=== PATIENT | male | born 1990 | race Caucasian/White ===

== ENCOUNTER → 2022-03-25 | Outpatient (CLI) | payer OTHER ==
--- NOTE | 2022-03-25 15:01 | XR ---
EXAMINATION TYPE: XR chest 2V DATE OF EXAM: 03/25/2022 2:55 PM COMPARISON: None TECHNIQUE: XR chest 2V Frontal and lateral views of the chest. CLINICAL INDICATION:Male, 31 years old with history of S20.20XA, S20.221A; FINDINGS: Lungs/Pleura: There is no evidence of pleural effusion, focal consolidation, or pneumothorax. Pulmonary vascularity: Unremarkable. Heart/mediastinum: Cardiomediastinal silhouette is unremarkable. Musculoskeletal: No acute osseous pathology. IMPRESSION: No acute cardiopulmonary disease/process.
--- NOTE | 2022-03-25 15:04 | XR ---
EXAMINATION TYPE: XR thoracic spine complete DATE OF EXAM: 03/25/2022 CLINICAL HISTORY: Injury with mid back pain. TECHNIQUE: Frontal, lateral, and swimmer's view of thoracic spine are obtained. COMPARISON: None. FINDINGS: Thoracic spine show satisfactory alignment without evidence of acute fracture or dislocatio n. Vertebral body heights and disc space heights are preserved. Visualized ribs are intact bilateral ly. IMPRESSION: No acute fracture or dislocation is seen in the thoracic spine.
--- NOTE | 2022-03-25 15:05 | XR ---
EXAMINATION TYPE: XR scapula RT DATE OF EXAM: 03/25/2022 COMPARISON: NONE HISTORY: pain TECHNIQUE: two views submitted FINDINGS: Joint spaces are preserved. Ribs are intact. There is a lucency through the glenoid on one view only which is likely is artifactual. IMPRESSION: 1. Lucency through the glenoid most likely is artifactual. The patient experienced point tenderness r egarding the glenoid then recommend CT scan.
== END | disposition home or self-care (01) ==
LOC: RADXRMAIN 14:16
PROVIDERS: ATTEND Emergency Medicine
DX: S20.221A Contusion of right back wall of thorax, initial encounter (principal); M54.6 Pain in thoracic spine
CPT/HCPCS: 71046; 72072

== ENCOUNTER → 2022-03-25 | Outpatient (CLI) | payer OTHER ==
--- NOTE | 2022-03-25 17:46 | CT ---
EXAMINATION TYPE: CT scapula RT wo con CT DLP: 328.5 mGycm, Automated exposure control for dose reduction was used. DATE OF EXAM: 03/25/2022 5:33 PM COMPARISON: None CLINICAL INDICATION:Male, 31 years old with history of S20.221A; , Rt scapula injury at work TECHNIQUE: Axial images were obtained of the right scapula . Additional coronal and sagittal reforma tted images and soft tissue and bone window were obtained for review. 3-D reconstruction was created on a separate workstation. Contrast used: None Oral contrast used: None FINDINGS: There is no evidence of fracture, subluxation, or dislocation. Scapula is intact without e vidence for fracture. The glenoid appears within normal limits. No significant soft tissue swelling o r joint effusion is identified. No focal muscular atrophy or edema is identified. No radiopaque forei gn body identified. Visualized portions of the chest are unremarkable. IMPRESSION: No evidence for acute fracture or dislocation. The glenoid appears intact within the limitations of C T, Consider MRI evaluation for better characterization for bony edema.
== END | disposition home or self-care (01) ==
LOC: RADCTMAIN 17:09
PROVIDERS: ATTEND Emergency Medicine
DX: S20.221A Contusion of right back wall of thorax, initial encounter (principal)

== ENCOUNTER → 2022-03-26 | Outpatient (CLI) | payer OTHER ==
--- NOTE | 2022-03-26 10:20 | XR ---
EXAMINATION TYPE: XR cervical spine comp DATE OF EXAM: 03/26/2022 TECHNIQUE: Frontal, lateral, oblique, swimmers, and open mouth view of the cervical spine are obtaine d. HISTORY: [id number] COMPARISON: None FINDINGS: The cervical spine is visualized in its entirety from C1 thru the top of T1 level, there i s grade 1 retrolisthesis C2 on C3 without evidence of acute fracture or dislocation. The pre-vertebr al soft tissue appears within normal limits. The C1-C2 articulation is within normal limits on the o pen mouth view. Vertebral body heights and disc space heights are maintained The oblique images are w ithin normal limits. Overlying soft tissues are unremarkable. IMPRESSION: No acute fracture or dislocation is seen in the cervical spine.
== END | disposition home or self-care (01) ==
LOC: RADXRMAIN 09:54
PROVIDERS: ATTEND Emergency Medicine
DX: S20.221D Contusion of right back wall of thorax, subsequent encounter (principal)
CPT/HCPCS: 72050

== ENCOUNTER → 2022-08-04 | Outpatient (CLI) | payer OTHER ==
--- NOTE | 2022-08-04 23:13 | MR ---
EXAMINATION TYPE: MR lumbar spine wo con DATE OF EXAM: 08/04/2022 COMPARISON: Outside lumbar spine x-ray July 01, 2022 HISTORY: LOW BACK PAIN into bilateral buttocks and front of thighs, INJURED 03-24-2022 TECHNIQUE: Multiplanar, multisequence imaging of the lumbar spine is performed without IV contrast. FINDINGS: Sagittal images of the lumbar spine show vertebral body heights and alignment to appear sta ble and satisfactory. There is disc desiccation L1-L2 and L5-S1 levels. There is mild disc space narr owing L1-L2 level with mild anterior spurring. The conus medullaris is normal in position and signal ending mid L1 level. Heterogeneous Modic type II endplate changes involving the inferior L1 endplate. Axial images show T12-L1 level to appear within normal limits. Axial images at L1-L2 level show mild broad disc bulge minimally effacing the anterior thecal sac. Pa tent bilateral neural foramina are seen. Axial images at L2-L3 and L3-L4 levels are within normal limits. Axial images at L4-L5 level show mild facet arthropathy bilaterally. Bilateral neural foramina are pa tent. Axial images at L5-S1 level show mild facet arthropathy bilaterally. There is tiny central disc protr usion but spinal canal is preserved as there is increased epidural fat. Bilateral neural foramina are noted patent. Paraspinal muscle bulk is maintained. IMPRESSION: Mild multilevel degenerative changes in the lumbar spine as detailed above.
== END | disposition home or self-care (01) ==
LOC: RADMRIMAIN 19:19
PROVIDERS: ATTEND Nurse Practitioner Family
DX: M47.816 Spondylosis without myelopathy or radiculopathy, lumbar region (principal)
CPT/HCPCS: 72148

== ENCOUNTER → 2022-08-06 | Outpatient (CLI) | payer OTHER ==
[2022-08-06 12:09] VITALS: BP 143/92; PULSE 94; RESP 18; TEMP 97.9
--- NOTE | 2022-08-06 14:14 | P.PAINPG ---
PQRS Measure Charge Sheet Comment: HISTORY OF PRESENT ILLNESS: 31 yr old male w at side as a referral from [facility] presents today w severe and chronic thoracic secondary to disc bulges, DDD, spondylosis and facet arthropathy without myelopathy for evaluation. Pt states pain level is at 9 /10 in intensity, constant, localized throughout the mid thoracic spine, sharp in character w shooting pain towards the flanks. Pain is provoked by bending, standing, twisting. Pain is alleviated by medications (Flexeril, Naproxen), THC edibles, Lidoderm patches, steroid IM x1, PT x 6 wks which ended in Jul 2022, use of a hot/ cold compression device, TENS unit use at home, use of a cane for ambulatory assistance, repositioning and rest. PMH: OA PSH: Denies SH: Never smoker, No ETOH abuse, +Cannabis use. Works at a factory. FH: Non contributory All: NKDA Meds: See list REVIEW OF ORGAN SYSTEMS: CONSTITUTIONAL: No fevers or chills. No recent weight loss. NEUROLOGICAL: + numbness and tingling along the distal extremities. No seizure disorders or headaches. MUSCULOSKELETAL: + pain PSYCHIATRIC: Denies current depression or suicidal thoughts. Physical Examinations : Constitutional : Cooperative , not in acute distress . Neurologic : Cranial nerve II to XII intact. No focal neurological deficits. Psychiatric : alert & oriented x 3. Matching mood & appropriate affect. Judgment & insight intact. Musculoskeletal : Cervical Spine Motor strength in the deltoid and biceps: Normal right side. Normal Left side Motor strength biceps and the wrist extensors: Normal right side . Normal left side Motor strength in the triceps muscle: Normal right side. Normal left side Deep tendon reflexes: Normal at the biceps. Normal at Brachioradialis. Normal at triceps Vertebral body tenderness to deep palpation over Cervical facet loading test: positive bilaterally Spurling test: positive bilaterally Neck distraction test: positive bilaterally Yajaira sign: positive bilaterally Thoracic spine Vertebral body tenderness to palpation over T7 Lumbar spine Motor strength lower extremities ,thigh and legs 5/5 Right side , 5/5 Left side Deep tendon reflexes : Normal Knee Jerk. Normal Ankle Jerk Vertebral body tenderness over Lumbar facet Loading Test: positive Right / positive Left Range of motion of the lumbar spine Flexion 30 degrees, extension 10 degrees Straight Leg Raise test: Left/ Right positive at degree Maty test: positive right / positive left. Severe tenderness over the Sacroiliac joint on the Right / Left sides Gaenslen test: positive bilaterally Seated flexion test: positive bilaterally. Sacral spine : Severe tenderness over the Sacroiliac joint: right side / left side Range of motion: Flexion of the lumbar spine <60 degrees Range of motion: Extension of the lumbar spine <20 degrees Gaenslen's Test positive Farhat's Test positive Maty test: positive right side / left side Thigh Thrust Test Sacral Thrust Test Imaging: MRI without contrast of the thoracic spine from 07/15/22 reviewed Assessment/ Plan : Lumbar disc bulges, Lumbar DDD Recommendation of SONAM T6- T7 #1. May need a series of injections for optimal pain relief. Risks, benefits of procedure discussed and patient verbalized understanding. Admits to aspirin or anti- coagulant use or medical history of diabetes. Protocol for discontinuation/ continuation of medications jaylon procedure discussed. All questions answered. I have spent greater than 30 minutes on patient care today. Dr Fierro was available by phone for the evaluation of this patient. The time was used to review the medical records including relevant urine studies and Prescription history (MAPs), review of the available imaging, evaluation and examination of the patient, coordination of care with the medical staff and if applicable referring physicians, as well as creation of the medical record Controlled Substance Measures - Controlled Substance Measures Is patient prescribed a controlled substance at discharge?: No
== END ==
LOC: PNWHC3 09:17
PROVIDERS: ATTEND Specialist
DX: M51.24 Other intervertebral disc displacement, thoracic region (principal); M51.36 Other intervertebral disc degeneration, lumbar region
CPT/HCPCS: 99211

== ENCOUNTER 2022-08-28 11:31 | Day surgery (SDC) | payer OTHER ==
[2022-08-25 14:32] VITALS: BMI 27.3
[2022-08-28 12:09] VITALS: TEMP 98.1
[2022-08-28] MEDS ORDERED: LACTATED RINGERS 1,000 ML IV SCH (12:09)
[2022-08-28] MEDS ORDERED: LIDOCAINE 1% (10MG/ML) FOR IV START INTRADERMA PRN (12:09)
[2022-08-28] MEDS ORDERED: IOPAMIDOL M200 10 ML VIAL ONE (12:31)
[2022-08-28] MEDS ORDERED: methylPREDNISolone ACETATE 80 MG/ML 1 ML VIAL ONE (12:31)
--- NOTE | 2022-08-28 12:47 | P.PCN ---
Date of Procedure: 08/28/22 Procedure(s) Performed: PREOPERATIVE DIAGNOSIS: 1- Thoracic and Lumbar Degenerative Disc Diseases 2-Lumbar spondylosis with Facet arthropathy without myelopathy. POSTOPERATIVE DIAGNOSIS: 1- thoracic and lumbar degenerative disc disease. 2-lumbar spondylosis with facet arthropathy without myelopathy. PROCEDURE 1. Thoracic epidural steroid injection under fluoroscopic guidance at the T6-7 level. (Fluoroscopy imaging was available in radiology department) 2. thoracic epidurogram. ANESTHESIA: Local anesthesia with lidocaine 1% 3 mL only EBL: Minimal PROCEDURE INDICATION: The patient withupper ,mid and low back pain and radiculitis symptoms unresponsive to conservative treatment. Fluoroscopy was used to optimize visualization of the needle placement and to maximize safety. PROCEDURE DESCRIPTION / TECHNIQUE: The patient was seen and identified in the preoperative area. Risks, benefits, complications including but not limited to infections ,bleeding ,allergic reaction to the medications ,nerve damage and not complete pain releife , and alternatives were discussed with the patient. The patient agreed to proceed with the procedure and signed the consent. IV was started, and vital signs were stable. Patient was taken to the OR and time out was completed. The patient was placed in the prone position on procedure table and a pillow was placed under the abdomen to reduce lumbar lordosis. The lumbosacral area was prepped and draped in the usual sterile fashion.ere closely monitored during the procedure. Conscious sedation was used during the procedure to decrease patients anxiety. Vital signs was monitered during the entire procedure. Using anterior-posterior fluoroscopy, the T6-7 interlaminar space was identified and the skin over this site was marked and then infiltrated with 1% lidocaine subcutaneously. Subsequently, a 20-gauge Tuohy epidural needle was inserted and advanced toward the epidural space using the ``Loss of resistance technique and guided by AP and lateral fluoroscopy. The correct needle position in the epidural space was verified with the injection of 2 mL of the water soluble contrast dye Isovue 200 contrast and observing an excellent epidurogram with the epidural spread of the dye, after negative aspiration for blood and CSF and in the absence of paresthesias. Again after negative aspiration, a 6 ml mixture containing 80 mg of Depo-medrol ( Preservetive Free ), and 2 ml of preservative free Normal Saline, and 2 ml of preservative free lidocaine 1% solution was injected and a washout of epidurogram was seen. Needle was withdrawn intact, skin was cleansed, and bandages were applied. COMPLICATIONS: None DISPOSITION / PLANS: The patient was placed in a supine position and transferred to the recovery area in a stable condition for observation. There was no evidence of lower extremity motor or sensory deficit after the procedure. Patient was discharged from the recovery room after meeting discharge criteria. Home discharge instructions were given to the patient by the staff. The patient was reexamined prior to discharge. The patient will schedule a follow up in the clinic in 2-4 weeks.
[2022-08-28 12:51] VITALS: RESP 16
--- NOTE | 2022-08-28 12:57 | FL ---
Intraoperative/procedural fluoroscopic services were provided for thoracic epidural steroid injection . Total fluoroscopy time is 2 seconds with a total of 1 submitted image to PACS. Total DAP 0.24449. P sterling see the operative note for further details.
[2022-08-28 13:11] VITALS: BP 110/72; PULSE 89
== END 2022-08-28 13:18 | disposition home or self-care (01) ==
LOC: ORPAIN 11:31
PROVIDERS: ATTEND Specialist
DX: M51.15 Intervertebral disc disorders with radiculopathy, thoracolumbar region (principal); M47.815 Spondylosis without myelopathy or radiculopathy, thoracolumbar region
CPT/HCPCS: 62321; J1040; Q9966

== ENCOUNTER → 2022-09-24 | Outpatient (CLI) | payer OTHER ==
[2022-09-24 14:22] VITALS: BP 141/93; PULSE 83; RESP 18; TEMP 98.6
--- NOTE | 2022-09-24 15:04 | P.PAINPG ---
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 Pt states he experienced 20 % pain relief x 4 wks s/p procedure. Pain level is provoked at 9 /10 in intensity, constant, localized in the lumbar spine, tender, stabbing in character w shooting towards the hips, R> L. Pain is provoked by weight bearing activity. Pain is alleviated with PT x 18 wks which he is currently in, massage therapy integrated w PT, use of a TENS unit, heat, ice, use of a cane for ambulatory assistance, medications, topical, repositioning and rest. Interventional pain procedures completed include SONAM T6-7 Patient is currently on Baclofen, Lidoderm Patient denies any side effects of the medication(s), denies excessive drowsiness or sleepiness, denies suicidal ideation and reports that the current pain medication is helping to control the pain and improve activities of daily living. Patient denies any motor or sensory deficits. Patient denies any fever or night sweats, denies any change in the bowel movements or urination. Physical Examination: -Constitutional: Cooperative. Not in acute distress . - Neurologic: Cranial nerve II to XII intact. No focal neurological deficits. - Psychatric: Alert & oriented x 3. Matching mood & appropriate affect. Judgment and insight intact. - Musculoskeletal: Cervical spine: Muscle bulk/ tone/ strength in the bilateral upper extremities normal Vertebral body tenderness to palpation over Spurling test positive Distraction test positive Facet loading test positive TTP Thoracic spine Muscle bulk / tone/ strength in the bilateral paraspinal muscles normal Vertebral body tender to palpation over Facet loading test positive TTP Lumbar spine: Motor bulk/ tone/ strength lower extremities , thigh and legs : 5/5 Deep tendon reflexes : Normal Knee Jerk. Normal Ankle Jerk . Vertebral body tenderness to palpation over L1 Babb Test positive Lumbar Facet Loading Test positive Straight Leg Raise: positive at 30 degrees right side/ left side Gaenslen's Test positive Sacral spine : Severe tenderness over the Sacroiliac joint: right side / left side Range of motion: Flexion of the lumbar spine <60 degrees Range of motion: Extension of the lumbar spine <20 degrees Gaenslen's Test positive right side / left side Maty test: positive right side / left side Thigh Thrust Test positive right side / left side Sacral Thrust Test positive right side / left side Assessment and plan: Chronic LBP secondary to lumbar DDD, spondylosis with facet arthropathy without myelopathy Recommendation of . Risks, benefits of procedure discussed and pt verbalized understanding. Admits to anticoagulant use or medical history of diabetes. Protocol for discontinuation/ continuation of medications jaylon procedure discussed. Minimal anesthesia provided, if clinically indicated, consisting of Versed and Fentanyl. Naproxen 500mg BID #60 1 RF. Use, side effects, adverse reactions and safe storage discussed patient verbalized unders tanding. All questions answered. I have spent less than 30 minutes on patient care today. Dr Fierro was available by phone for the evaluation of this patient. The time was used to review the medical records including relevant urine studies and Prescription history (MAPs), review of the available imaging, evaluation and examination of the patient, coordination of care with the medical staff and if applicable referring physicians, as well as creation of the medical record PQRS Narrative: Hx Alcohol Use (MH) No Home Medications: Ambulatory Orders Cyclobenzaprine [Flexeril] 10 mg PO BID 08/25/22 Lidocaine 5% Patch [Lidoderm] 1 patch TOPICAL DAILY 08/25/22 Naproxen [Naprosyn] 500 mg PO BID 08/25/22 Oxybutynin Chloride [Ditropan XL] 10 mg PO DAILY 08/25/22 Controlled Substance Measures - Controlled Substance Measures Is patient prescribed a controlled substance at discharge?: No
== END ==
LOC: PNWHC3 10:55
PROVIDERS: ATTEND Specialist
DX: M51.36 Other intervertebral disc degeneration, lumbar region (principal); M47.816 Spondylosis without myelopathy or radiculopathy, lumbar region; G89.29 Other chronic pain
CPT/HCPCS: 99211

== ENCOUNTER 2022-10-14 10:24 | Day surgery (SDC) | payer OTHER ==
[2022-10-14] MEDS ORDERED: LACTATED RINGERS 1,000 ML IV SCH (10:39)
[2022-10-14] MEDS ORDERED: LIDOCAINE 1% (10MG/ML) FOR IV START INTRADERMA PRN (10:39)
[2022-10-14 10:48] VITALS: TEMP 97.8
[2022-10-14] MEDS ORDERED: fentaNYL (PF) 50 MCG/ML 2 ML AMP ONE (10:59)
[2022-10-14] MEDS ORDERED: IOPAMIDOL M200 10 ML VIAL ONE (10:59)
[2022-10-14] MEDS ORDERED: methylPREDNISolone ACETATE 80 MG/ML 1 ML VIAL ONE (10:59)
[2022-10-14] MEDS ORDERED: MIDAZOLAM 2 MG/2 ML VIAL ONE (10:59)
--- NOTE | 2022-10-14 11:08 | P.PCN ---
Date of Procedure: 10/14/22 Procedure(s) Performed: PREOPERATIVE DIAGNOSIS: 1- Lumbar Degenerative Disc Diseases 2-Lumbar spondylosis with Facet arthropathy without myelopathy. POSTOPERATIVE DIAGNOSIS: 1-lumbar degenerative disc disease. 2-lumbar spondylosis with facet arthropathy without myelopathy. PROCEDURE 1. Lumbar epidural steroid injection under fluoroscopic guidance at the L1-2 level. (Fluoroscopy imaging was available in radiology department) 2. Lumbar epidurogram. ANESTHESIA: moderate sedation with intravenous Versed 2 mg ,and fentanyle 100 Mcg Sedation start time : 1059 Sedation end time : 1105 EBL: Minimal PROCEDURE INDICATION: The patient with low back pain and radiculitis symptoms unresponsive to conservative treatment. Fluoroscopy was used to optimize visualization of the needle placement and to maximize safety. PROCEDURE DESCRIPTION / TECHNIQUE: The patient was seen and identified in the preoperative area. Risks, benefits, complications including but not limited to infections ,bleeding ,allergic react ion to the medications ,nerve damage and not complete pain releife , and alternatives were discussed with the patient. The patient agreed to proceed with the procedure and signed the consent. IV was started, and vital signs were stable. Patient was taken to the OR and time out was completed. The patient was placed in the prone position on procedure table and a pillow was placed under the abdomen to reduce lumbar lordosis. The lumbosacral area was prepped and draped in the usual sterile fashion.ere closely monitored during the procedure. Conscious sedation was used during the procedure to decrease patients anxiety. Vital signs was monitered during the entire procedure. Using anterior-posterior fluoroscopy, the L1-2 interlaminar space was identified and the skin over this site was marked and then infiltrated with 1% lidocaine subcutaneously. Subsequently, a 20-gauge Tuohy epidural needle was inserted and advanced toward the epidural space using the ``Loss of resistance technique and guided by AP and lateral fluoroscopy. The correct needle position in the epidural space was verified with the injection of 2 mL of the water soluble contrast dye Isovue 200 contrast and observing an excellent epidurogram with the epidural spread of the dye, after negative aspiration for blood and CSF and in the absence of paresthesias. Again after negative aspiration, a 6 ml mixture containing 80 mg of Depo-medrol ( Preservetive Free ), and 2 ml of preservative free Normal Saline, and 2 ml of preservative free lidocaine 1% solution was injected and a washout of epidurogram was seen. Needle was withdrawn intact, skin was cleansed, and bandages were applied. COMPLICATIONS: None DISPOSITION / PLANS: The patient was placed in a supine position and transferred to the recovery area in a stable condition for observation. There was no evidence of lower extremity motor or sensory deficit after the procedure. Patient was discharged from the recovery room after meeting discharge criteria. Home discharge instructions were given to the patient by the staff. The patient was reexamined prior to discharge. The patient will schedule a follow up in the clinic in 2-4 weeks.
--- NOTE | 2022-10-14 11:17 | FL ---
EXAMINATION TYPE: FL guided pain mgmt statistic DATE OF EXAM: 10/14/2022 HISTORY: Fluoroscopy time Total dose area product (DAP) in uGy*m?, mGy*cm? (or similar): 0.62115 IMPRESSION: 1. Fluoroscopy time.
[2022-10-14 12:05] VITALS: RESP 14
[2022-10-14 12:10] VITALS: BP 121/71; PULSE 68
== END 2022-10-14 12:11 | disposition home or self-care (01) ==
LOC: ORPAIN 10:24
PROVIDERS: ATTEND Specialist
DX: M51.16 Intervertebral disc disorders with radiculopathy, lumbar region (principal); M47.26 Other spondylosis with radiculopathy, lumbar region
CPT/HCPCS: 62323; J2250; J1040; J3010; Q9966

== ENCOUNTER → 2022-11-06 | Outpatient (CLI) | payer OTHER ==
[2022-11-06 10:49] VITALS: BP 152/101; PULSE 77; RESP 18; TEMP 98.7
--- NOTE | 2022-11-06 15:26 | P.PAINPG ---
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 Pt states he experienced 25 % pain relief x 3 wks s/p procedure. Pain level is provoked at 10 /10 in intensity, constant, localized in the cervical spine, tender, stabbing in character w shooting towards the bottom of head. Pain is provoked by weight bearing activity. Pain is alleviated with PT x 18 wks in Apr 2022, massage therapy integrated w PT, massage therapy x 1 visit, use of a TENS unit, heat, ice, use of a cane for ambulatory assistance, medications, topical, repositioning and rest. Oswetry Pain Score of 41. Interventional pain procedures completed include SONAM T6-7, L1-L2 Patient is currently on Baclofen, Lidoderm Patient denies any side effects of the medication(s), denies excessive drowsiness or sleepiness, denies suicidal ideation and reports that the current pain medication is helping to control the pain and improve activities of daily living. Patient denies any motor or sensory deficits. Patient denies any fever or night sweats, denies any change in the bowel movements or urination. Physical Examination: -Constitutional: Cooperative. Not in acute distress . - Neurologic: Cranial nerve II to XII intact. No focal neurological deficits. - Psychatric: Alert & oriented x 3. Matching mood & appropriate affect. Judgment and insight intact. - Musculoskeletal: Cervical spine: Muscle bulk/ tone/ strength in the bilateral upper extremities normal Vertebral body tenderness to palpation over C2, C5, C6 Spurling test positive Distraction test positive Facet loading test positive TTP over C5-C6, C6-C7, C7-T1 Thoracic spine Muscle bulk / tone/ strength in the bilateral paraspinal muscles normal Vertebral body tender to palpation over Facet loading test positive TTP Lumbar spine: Motor bulk/ tone/ strength lower extremities , thigh and legs : 5/5 Deep tendon reflexes : Normal Knee Jerk. Normal Ankle Jerk . Vertebral body tenderness to palpation over L1 Babb Test positive Lumbar Facet Loading Test positive Straight Leg Raise: positive at 30 degrees right side/ left side Gaenslen's Test positive Sacral spine : Severe tenderness over the Sacroiliac joint: right side / left side Range of motion: Flexion of the lumbar spine <60 degrees Range of motion: Extension of the lumbar spine <20 degrees Gaenslen's Test positive right side / left side Maty test: positive right side / left side Thigh Thrust Test positive right side / left side Sacral Thrust Test positive right side / left side Imaging: MRI non contrast of the cerivcl spine from 09/16/22 reviewed Assessment and plan: Chronic neck pain secondary to cervical DDD, spondylosis with facet arthropathy without myelopathy Recommendation of SCS Trial re: G89.4, M51.12. Risks, benefits of procedure discussed and pt verbalized understanding. Admits to anticoagulant use or medical history of diabetes. Protocol for discontinuation/ continuation of medications jaylon procedure discussed. Minimal anesthesia provided, if clinically indicated, consisting of Versed and Fentanyl. Naproxen 500mg BID #60 1 RF. Use, side effects, adverse reactions and safe storage discussed patient verbalized understanding. All questions answered. I have spent less than 30 minutes on patient care today. Dr Fierro was available by phone for the evaluation of this patient. The time was used to review the medical records including relevant urine studies and Prescription history (MAPs), review of the available imaging, evaluation and examination of the patient, coordination of care with the medical staff and if applicable referring physicians, as well as creation of the medical record PQRS Narrative: Hx Alcohol Use (MH) No Home Medications: Ambulatory Orders oxyBUTYnin chloride [Ditropan XL] 10 mg PO DAILY 08/25/22 Naproxen [Naprosyn] 500 mg PO BID 30 Days #60 tab 09/24/22 Acetaminophen [Tylenol Extra Strength] 500 mg PO Q6H PRN 10/10/22 Baclofen 5 mg PO TID 10/10/22 Lidocaine 5% Patch [Lidoderm 5% Patch] 1 patch TOPICAL DAILY #60 patch 10/14/22 Controlled Substance Measures - Controlled Substance Measures Is patient prescribed a controlled substance at discharge?: No
== END ==
LOC: PNWHC3 09:43
PROVIDERS: ATTEND Specialist
DX: M50.33 Other cervical disc degeneration, cervicothoracic region (principal); M47.813 Spondylosis without myelopathy or radiculopathy, cervicothoracic region; M50.322 Other cervical disc degeneration at C5-C6 level; M50.323 Other cervical disc degeneration at C6-C7 level; G89.29 Other chronic pain; M53.3 Sacrococcygeal disorders, not elsewhere classified
CPT/HCPCS: 99211